=== PATIENT | female | born 1990 | race African-American/Black ===

== ENCOUNTER 2020-08-09 17:18 | Emergency (ER) | payer OTHER ==
[~2020-08-09] VITALS: Ht 167.6 cm; Wt 90.7 kg
[2020-08-09 17:28] VITALS: BP 138/86
== END 2020-08-09 19:07 | disposition home or self-care (01) ==
LOC: ER 17:18
DX: S40.021A Contusion of right upper arm, initial encounter (principal); W18.39XA Other fall on same level, initial encounter; Y93.89 Activity, other specified; Y92.89 Other specified places as the place of occurrence of the external cause; Y99.8 Other external cause status